=== PATIENT | male | born 1985 | race Caucasian/White ===

== ENCOUNTER 2024-05-10 06:30 | Emergency (ER) | payer BC ==
[~2024-05-10] VITALS: Ht 170.2 cm; Wt 65.0 kg
[~2024-05-10 06:30] MED LIST: BENZONATATE100 MG PO; LEVAQUIN750 MG PO; NICOTINE PATCH1 EACH TD
[2024-05-10] MEDS ORDERED: ONDANSETRON ODT8 MG PO (07:06)
[2024-05-10] MEDS ORDERED: IBUPROFEN 600 MG TAB PO ONE (07:15)
[2024-05-10] MEDS ORDERED: ONDANSETRON 4 MG TAB ODT SL ONE (07:15)
[2024-05-10 07:18] LABS: INFLUENZA B NAA NEGATIVE (NEGATIVE); RESPIRATORY SYNCYTIAL VIR NAA NEGATIVE (NEGATIVE)
[2024-05-10] MEDS ORDERED: TAMIFLU75 MG PO (07:36)
[2024-05-10 07:46] VITALS: BP 119/54
== END 2024-05-10 07:47 | disposition home or self-care (01) ==
LOC: ED 06:30
PROVIDERS: Family Medicine
DX: J10.1 Influenza due to other identified influenza virus with other respiratory manifestations (principal); F17.200 Nicotine dependence, unspecified, uncomplicated; Z79.2 Long term (current) use of antibiotics; Z79.899 Other long term (current) drug therapy
CPT/HCPCS: 87502; 99283; A9270; U0002